=== PATIENT | female | born 2000 | race African-American/Black ===

== ENCOUNTER 2021-01-26 13:32 | Inpatient (IN) | payer OTHER ==
[~2021-01-26 13:32] MED LIST: Bupivacaine 0.25% HCL 30 ML VIAL ONE
[2021-01-26] MEDS ORDERED: hydrALAZINE 20 MG/ML VIAL SLOW IVP PRN (19:08)
[2021-01-26] MEDS ORDERED: Zolpidem Tartrate 5 MG TAB PO PRN (19:08)
[2021-01-26] MEDS ORDERED: Ondansetron PF 4 MG/2 ML Vial IVP PRN (19:08)
[2021-01-26] MEDS ORDERED: Acetaminophen 500 MG TAB PO PRN (19:08)
[2021-01-26] MEDS ORDERED: Diphenoxylate HCl/Atropine Tablet PO PRN ×2 (19:08)
[2021-01-26] MEDS ORDERED: Ibuprofen 800 MG TAB PO PRN (19:08)
[2021-01-26] MEDS ORDERED: Docusate 100 MG CAP PO PRN (19:08)
[2021-01-26] MEDS ORDERED: Misoprostol 200 MCG TAB PR PRN (19:08)
[2021-01-26] MEDS ORDERED: HYDROcodone/Acetaminophen 5/325 mg Tablet PO PRN ×2 (19:08)
[2021-01-26] MEDS ORDERED: Promethazine HCl 25 MG/ML VIAL IM PRN (19:08)
[2021-01-26] MEDS ORDERED: Lidocaine 1% (PF) 30 ML VIAL SC PRN (19:08)
[2021-01-26] MEDS: Lactated Ringer's 1,000 ML IV SCH (19:43)
[2021-01-26] MEDS ORDERED: Misoprostol 100 MCG TAB ONE (20:05)
[2021-01-26 20:14] VITALS: BMI 62.7
[2021-01-26] MEDS ORDERED: NS w/ Oxytocin 30 units 500 ML IV SCH ×2 (20:30)
[2021-01-26] MEDS ORDERED: NS w/ Oxytocin 30 units 500 ML IVPB SCH (20:30)
[2021-01-26 20:39] LABS: Hemoglobin 9.1 g/dL (12.0-15.5); Mean Corpuscular HGB CONC 31.3 g/dL (32.0-36.0); Mean Corpuscular Hemoglobin 26.3 pg (27.0-33.0); Mean Corpuscular Volume 84.1 fl (81.6-98.3); Mean Platelet Volume 8.8 fl (7.4-10.4); Platelet Count 330 10x3/uL (150-450); RBC Distribution Width 16.2 % (11.5-14.5); Red Blood Cell (RBC) Count 3.46 10x6/uL (3.90-5.03); White Blood Cell (WBC) Count 8.7 10x3/uL (3.5-10.5)
[2021-01-26 21:07] LABS: HIV (1/2) Antibody/Antigen Non-Reactive (NonReactive); HIV 1/2 INDEX 0.06 S/CO (<1.00); Hep B Surf Ag Non-Reactive S/CO (NonReactive)
[2021-01-26 21:08] LABS: Syphilis Antibody Nonreactive (Nonreactive); Syphilis Antibody Index 0.07 S/CO (<1.00 Non-Reactive)
[2021-01-26] MEDS: Misoprostol 100 MCG TAB VAG SCH (23:14)
[2021-01-27] MEDS: Lactated Ringer's 1,000 ML IV SCH ×3 (01:29→14:13)
[2021-01-27] MEDS: Misoprostol 100 MCG TAB VAG SCH (03:09)
[2021-01-27] MEDS: Butorphanol Tartrate 1 MG/ML VIAL SLOW IVP PRN ×2 (08:27→11:26)
[2021-01-27] MEDS ORDERED: Fentanyl 2 mcg/Bup 0.1% Cadd 100 ML ONE (13:23)
[2021-01-27] MEDS ORDERED: Lactated Ringer's 500 ML IV PRN ×2 (15:11→15:12)
[2021-01-27] MEDS ORDERED: Ondansetron PF 4 MG/2 ML Vial IVP PRN ×3 (15:11→23:57)
[2021-01-27] MEDS ORDERED: Naloxone HCl 0.4 mg/ml Vial IVP PRN ×4 (15:11→15:12)
[2021-01-27] MEDS ORDERED: Hydrocerin (Eucerin) Cream 120 gm Jar TOP PRN ×2 (15:11→15:12)
[2021-01-27] MEDS ORDERED: ePHEDrine Sulfate 50 MG/10 ML VIAL SLOW IVP PRN ×2 (15:11→15:12)
[2021-01-27] MEDS ORDERED: Acetaminophen 325 MG TAB PO PRN ×2 (15:11→15:12)
[2021-01-27] MEDS ORDERED: Promethazine HCl 25 MG/ML VIAL IM PRN ×2 (15:11→15:12)
[2021-01-27] MEDS ORDERED: diphenhydrAMINE 50 MG/ML VIAL IVP PRN ×2 (15:11→15:12)
[2021-01-27] MEDS ORDERED: Communication Order-Pharmacy FS SCH ×2 (15:15)
[2021-01-27] MEDS ORDERED: Fentanyl 2 mcg/Bupivacaine 0.1% Cassette 100 ML EPIDURAL SCH (15:15)
[2021-01-27] MEDS ORDERED: Misoprostol 200 MCG TAB ONE (23:35)
[2021-01-27] MEDS ORDERED: Methylergonovine 0.2 MG/ML VIAL ONE (23:36)
[2021-01-27] MEDS ORDERED: Boostrix 0.5 ML (Tdap) VIAL IM ONE (23:57)
[2021-01-27] MEDS ORDERED: Lanolin Ointment 7 GM TUBE TOP PRN (23:57)
[2021-01-27] MEDS ORDERED: hydrALAZINE 20 MG/ML VIAL SLOW IVP PRN (23:57)
[2021-01-27] MEDS ORDERED: diphenhydrAMINE 25 MG CAP PO PRN (23:57)
[2021-01-27] MEDS ORDERED: Bisacodyl 10 MG SUPP PR PRN (23:57)
[2021-01-27] MEDS ORDERED: Milk Of Magnesia 30 ML UDCUP PO PRN (23:57)
[2021-01-27] MEDS ORDERED: Preparation H Ointment 28 GM TUBE PR PRN (23:57)
[2021-01-27] MEDS ORDERED: Misoprostol 200 MCG TAB VAG PRN (23:57)
[2021-01-28] MEDS ORDERED: NS w/ Oxytocin 30 units 500 ML IV SCH (00:30)
[2021-01-28] MEDS ORDERED: Zolpidem Tartrate 5 MG TAB PO PRN ×2 (00:31→03:45)
[2021-01-28] MEDS ORDERED: HYDROcodone/Acetaminophen 5/325 mg Tablet PO PRN ×2 (03:45)
[2021-01-28] MEDS: Ibuprofen 800 MG TAB PO SCH ×3 (05:39→21:49)
[2021-01-28] MEDS: Misoprostol 100 MCG TAB VAG SCH (07:28)
[2021-01-28] MEDS: Ferrous Sulfate 325 MG TAB PO SCH ×2 (08:12→17:15)
[2021-01-28] MEDS: Prenatal Vitamin 1 TAB PO SCH (08:13)
[2021-01-28] MEDS: Docusate Calcium (SURFAK) 240 MG CAP PO SCH ×2 (08:13→21:49)
[2021-01-29] MEDS: Ibuprofen 800 MG TAB PO SCH ×2 (05:28→13:44)
[2021-01-29 07:50] VITALS: BP 119/57; TEMP 97.9
[2021-01-29] MEDS: Prenatal Vitamin 1 TAB PO SCH (08:41)
[2021-01-29] MEDS: Docusate Calcium (SURFAK) 240 MG CAP PO SCH (08:41)
[2021-01-29] MEDS: Ferrous Sulfate 325 MG TAB PO SCH (08:41)
== END 2021-01-29 14:05 | disposition home or self-care (01) | DRG 806 ==
LOC: CSHLD 19:05 → CSHPP 01-28 03:12
PROVIDERS: ADMIT Obstetrics & Gynecology; ATTEND Obstetrics & Gynecology
PROC: 10E0XZZ Delivery of Products of Conception, External Approach (ICD-10-PCS; principal; 2021-01-27)
PROC: 10907ZC Drainage of Amniotic Fluid, Therapeutic from Products of Conception, Via Natural or Artificial Opening (ICD-10-PCS; 2021-01-27)
PROC: 3E0P7VZ Introduction of Hormone into Female Reproductive, Via Natural or Artificial Opening (ICD-10-PCS; 2021-01-27)
PROC: 3E033VJ Introduction of Other Hormone into Peripheral Vein, Percutaneous Approach (ICD-10-PCS; 2021-01-27)
PROC: 0HQ9XZZ Repair Perineum Skin, External Approach (ICD-10-PCS; 2021-01-27)
DX: O99.214 Obesity complicating childbirth (principal); O99.354 Diseases of the nervous system complicating childbirth; Z37.0 Single live birth; Z20.822 Contact with and (suspected) exposure to COVID-19; Z3A.39 39 weeks gestation of pregnancy; D64.9 Anemia, unspecified; E66.9 Obesity, unspecified; G43.909 Migraine, unspecified, not intractable, without status migrainosus; O99.02 Anemia complicating childbirth; O70.0 First degree perineal laceration during delivery
CPT/HCPCS: 51702; 85027; 86780; 86850; 86900; 86901; 87340; 87389; J0595; J2405; J2590; J7120; S0020; U0003; U0005

== ENCOUNTER 2021-02-26 03:47 | Emergency (ER) | payer OTHER ==
[2021-02-26] MEDS ORDERED: Morphine 4 MG/ML VIAL ONE (04:16)
[2021-02-26] MEDS ORDERED: Ondansetron PF 4 MG/2 ML Vial ONE (04:17)
[2021-02-26 04:20] LABS: Hemoglobin 11.7 g/dL (12.0-15.5); MDiff Complete? YES; Mean Corpuscular HGB CONC 31.3 g/dL (32.0-36.0); Mean Corpuscular Hemoglobin 26.4 pg (27.0-33.0); Mean Corpuscular Volume 84.4 fl (81.6-98.3); Mean Platelet Volume 9.1 fl (7.4-10.4); Platelet Count 374 10x3/uL (150-450); Red Blood Cell (RBC) Count 4.43 10x6/uL (3.90-5.03); White Blood Cell (WBC) Count 9.8 10x3/uL (3.5-10.5)
[2021-02-26 04:37] LABS: ALT (SGPT) 15 U/L (8-55); AST (SGOT) 28 U/L (5-34); Alkaline Phosphatase 120 U/L (40-100); Anion Gap 13 mmol/L (10-20); BUN (Urea Nitrogen) 8 mg/dL (7.0-18.7); Bilirubin, Total 0.4 mg/dL (0.2-1.2); Calc. Creatinine Clearance 0 mL/min (70-130); Calcium 8.9 mg/dL (7.8-10.44); Carbon Dioxide 25 mmol/L (22-29); Chloride 107 mmol/L (98-107); Globulin 2.9 g/dL (2.4-3.5); Glucose 98 mg/dL (70-105); Lipase 26 U/L (8-78); Potassium 3.7 mmol/L (3.5-5.1); Protein, Total 6.9 g/dL (6.0-8.3); Sodium 141 mmol/L (136-145)
[2021-02-26 06:25] LABS: Lymphocytes 48 % (28-48); Monocytes 10 % (0-4); Neutrophil 30 % (31-61); Reactive Lymphocytes 11 % (0-10)
[2021-02-26 06:27] LABS: Hypochromia SLIGHT = 6-15 cells (100X) (0-5/hpf)
[2021-02-26 06:28] LABS: Platelet Morphology Comment Appears Adequate
== END 2021-02-26 05:13 | disposition home or self-care (01) ==
LOC: CSHERS 03:47
DX: R10.13 Epigastric pain (principal)
CPT/HCPCS: 71045; 80053; 83690; 84484; 85025; 93005; 96374; 96375; J2270; J2405

== ENCOUNTER 2023-11-23 17:38 | Emergency (ER) | payer BC ==
[2023-11-23 19:03] LABS: Influenza A by NAA Not Detected (NotDetected); Influenza B by NAA Not Detected (NotDetected); SARS-CoV-2 NAA Rapid Test Not Detected (NotDetected)
== END 2023-11-23 20:40 | disposition home or self-care (01) ==
LOC: CSHERS 17:38
DX: B34.9 Viral infection, unspecified (principal); Z55.6 Problems related to health literacy
CPT/HCPCS: 71045; 93005